=== PATIENT | male | born 1965 | race Caucasian/White ===

== ENCOUNTER 2017-10-31 11:39 | Day surgery (SDC) | payer OTHER ==
[2017-10-31] MEDS ORDERED: FENTAnyl 50 MCG/ML VIAL (14:40)
[2017-10-31] MEDS ORDERED: MIDAZOLAM 1 MG/ML 2 ML INJ (14:40)
[2017-10-31] MEDS ORDERED: CEFAZOLIN 2 GM/50 ML (PMX) 50 ML IVPB ×2 (14:46→14:47)
== END 2017-10-31 16:21 | disposition home or self-care (01) ==
LOC: GIL 11:39
DX: K57.90 Diverticulosis of intestine, part unspecified, without perforation or abscess without bleeding (principal)
CPT/HCPCS: 45378